=== PATIENT | female | born 2000 | race Caucasian/White ===

== ENCOUNTER 2024-10-05 10:12 | Inpatient (IN) | payer BC, OTHER ==
[2024-10-13] MEDS ORDERED: miSOPROStoL 25 MCG TAB PV SCH (00:15)
[2024-10-13] MEDS ORDERED: MAGNESIUM HYDROXIDE/AL HYDROX 30 ML CUP PO PRN (00:15)
[2024-10-13] MEDS ORDERED: LACTATED RINGER'S 1,000 ML IV PRN (00:15)
[2024-10-13] MEDS ORDERED: CALCIUM CARBONATE 500 MG CHEW PO PRN (00:15)
[2024-10-13] MEDS ORDERED: OXYTOCIN 10 UNITS/ML VIAL IM SCH (00:15)
[2024-10-13 01:13] LABS: AMPHETAMINES, URINE NEGATIVE (NEGATIVE); BARBITURATES, URINE NEGATIVE (NEGATIVE); BENZODIAZEPINE, URINE NEGATIVE (NEGATIVE); BUPRENORPHINE, URINE NEGATIVE (NEGATIVE); CANNABINOID, URINE NEGATIVE (NEGATIVE); COCAINE, URINE NEGATIVE (NEGATIVE); ECSTASY, URINE NEGATIVE (NEGATIVE); FENTANYL, URINE NEGATIVE (NEGATIVE); METHADONE, URINE NEGATIVE (NEGATIVE); OPIATES, URINE NEGATIVE (NEGATIVE); OXYCODONE, URINE NEGATIVE (NEGATIVE); PHENCYCLIDINE, URINE NEGATIVE (NEGATIVE)
[2024-10-13 01:36] LABS: HEMATOCRIT 37.9 % (35.0-50.0); HEMOGLOBIN 13.4 g/dL (12.0-18.0); MCH 30.3 (27-36); MCHC 35.4 g/dl (30-36); MCV 85.7 fl (81-99); RBC 4.42 M/ul (4.3-5.7); RDW 13.2 (10.5-15.0)
[2024-10-13 02:10] LABS: ABO AB; ANTIBODY SCREEN NEGATIVE; RH POSITIVE
[2024-10-13 03:16] VITALS: BP 125/86
[2024-10-13] MEDS ORDERED: OXYTOCIN/0.9 % SODIUM CHLORIDE 30 UNITS/500 ML BAG IV SCH (09:45)
[2024-10-13] MEDS ORDERED: MAGNESIUM SULFATE 500 ML IV SCH (10:15)
[2024-10-13] MEDS ORDERED: CALCIUM GLUCONATE 1,000 MG/10 ML VIAL IV PRN (10:15)
[2024-10-13] MEDS ORDERED: LACTATED RINGER'S 1,000 ML IV SCH (10:15)
[2024-10-13] MEDS ORDERED: LABETALOL HCL 100 MG/20 ML MDV IV PRN ×3 (10:15)
[2024-10-13 10:26] VITALS: BP 174/91
[2024-10-13 10:44] LABS: HEMATOCRIT 41.2 % (35.0-50.0); HEMOGLOBIN 14.4 g/dL (12.0-18.0); MCH 30.3 (27-36); MCHC 34.9 g/dl (30-36); MCV 86.8 fl (81-99); RBC 4.74 M/ul (4.3-5.7); RDW 13.2 (10.5-15.0)
[2024-10-13 11:09] LABS: ALBUMIN 2.8 g/dL (3.4-5.0); ALBUMIN/GLOBULIN RATIO 0.7 (1.1-2.4); ANION GAP 11.5 (7-21); BILIRUBIN, TOTAL 0.2 mg/dL (0.2-1.0); BUN/CREATININE RATIO 15.38 (6.0-28.6); CALCIUM 8.7 mg/dL (8.5-10.1); CREATININE, SERUM 0.78 mg/dL (0.55-1.02); POTASSIUM 3.5 mmol/L (3.5-5.1); PROTEIN, TOTAL 6.8 g/dL (6.4-8.2)
[2024-10-13] MEDS ORDERED: ePHEDrine sulfate 5 MG/ML SYRINGE IV PRN (11:30)
[2024-10-13] MEDS ORDERED: ROPIVACAINE 0.2% 200 ML BAG EPIDURAL SCH (11:30)
[2024-10-13] MEDS ORDERED: LACTATED RINGER'S 500 ML IV PRN (11:30)
[2024-10-13] MEDS ORDERED: LACTATED RINGER'S 2,000 ML IV ONE (11:30)
[2024-10-13 12:42] LABS: CREATININE, RANDOM URINE 62.33 mg/dL (NOT ESTABLISHED); PROTEIN/CREATININE RATIO 0.49 mg/mg (0.010-0.107)
[2024-10-13 16:29] LABS: IS CROSSMATCH COMPATIBLE
[2024-10-13 16:31] LABS: ABO AB; RH POSITIVE
--- NOTE | 2024-10-13 18:41 | PR ---
[facility] [address], [place] [address] Signed Progress Notes IP Datetime Report Generated by CPLele: 10/13/2024 18:41 PROGRESS NOTES: [id number] Impression: Normal Progression of Labor; Reassuring Heart Rate Procedures: Scalp Electrode Plan: Continue Present Management; Anticipate Vaginal Delivery Informed Consent Obtain: Vaginal Delivery VITAL SIGNS: [id number] Vital Signs: Reviewed; Within Normal Limits EXAM: [id number] Dilatation: 8.0 Effacement: 90 Station: -1 Contractions: Irregular; difficult to trace MEMBRANES: [id number] Amniotic Fluid Color: Clear Comments: Pt seen and examined. Doing well. BPs well controlled. Painfree w/ epidural. Making steady progress w/ reassuring FHT. Anticpate . Discussed indications for IUPC / pitocin if unchanged at next exam. All questions answered. FETUS A: [id number] FHR Baseline: 120 Variability: Moderate 6-25bpm Accelerations: 15X15 Decelerations: None FHR Category: Category I Presentation: Vertex Comments on Fetus A: No evidence of metabolic acidosis FETUS B: [id number] Signing Physician: Socrates Arias DO Copies: ~ *Electronically Signed* 10/13/24 184 SOCRATES ARIAS (DAI) DO PATIENT NAME: MICHELLE GARCIA PROGRESS NOTE DATE OF : 99 PHYSICIAN: SOCRATES ARIAS DO (JD) RPT #: [id number] REPORT IS CONFIDENTIAL AND NOT TO BE RELEASED WITHOUT AUTHORIZATION
[2024-10-13] MEDS ORDERED: ACETAMINOPHEN 500 MG TAB PO PRN (20:45)
--- NOTE | 2024-10-13 22:58 | PR ---
[facility] [address], [place] [address] Signed Progress Notes IP Datetime Report Generated by SHAISTA: 10/13/2024 22:58 PROGRESS NOTES: [id number] Impression: Normal Progression of Labor; Reassuring Heart Rate Procedures: Intrauterine Pressure Catheter; Sterile Vag Exam Plan: Augmentation; Anticipate Vaginal Delivery Informed Consent Obtain: Vaginal Delivery; Risks, Benefits and Alternatives Discussed Other Informed Consents: Pt declined scalp electrode at this time VITAL SIGNS: [id number] Vital Signs: Reviewed; Within Normal Limits EXAM: [id number] Dilatation: 9.0 Effacement: 90 Station: -1 Contractions: Difficult to monitor MEMBRANES: [id number] Amniotic Fluid Color: Clear Comments: Pt seen and examined. Doing well. Recommended IUPC and likely pitocin augmentation if CTXs inadequate. Pt ok with IUPC and pitocin if needed; declines FSE. IUPC placed w/out diffculty. Pitocin if inadequate and will titrated until CTXs adequate. Anticipate . Discussed possible amnioinfusion should pt have recurrent significant variable decelerations. FETUS A: [id number] FHR Baseline: 120 Variability: Moderate 6-25bpm Accelerations: 15X15 Decelerations: Variable FHR Category: Category II Presentation: Vertex Comments on Fetus A: No evidence of metabolic acidosis FETUS B: [id number] Signing Physician: Socrates Arias DO Copies: ~ *Electronically Signed* 10/13/24 9385 SOCRATES ARIAS (DAI) DO PATIENT NAME: MICHELLE GARCIA PROGRESS NOTE DATE OF : 99 PHYSICIAN: SOCRATES ARIAS DO (JD) RPT #: [id number] REPORT IS CONFIDENTIAL AND NOT TO BE RELEASED WITHOUT AUTHORIZATION
[2024-10-13] MEDS ORDERED: OXYTOCIN/0.9 % SODIUM CHLORIDE 500 ML IV SCH (23:15)
[2024-10-14] MEDS ORDERED: CALCIUM CARBONATE 500 MG CHEW PO PRN (01:15)
[2024-10-14] MEDS ORDERED: HYDROCORTISONE ACETATE 25 MG SUPP PR PRN (01:15)
[2024-10-14] MEDS ORDERED: LACTATED RINGER'S 1,000 ML IV SCH (01:15)
[2024-10-14] MEDS ORDERED: OXYTOCIN/0.9 % SODIUM CHLORIDE 500 ML IV SCH (01:15)
[2024-10-14] MEDS ORDERED: MAGNESIUM HYDROXIDE 30 ML UDC PO PRN (01:15)
[2024-10-14] MEDS ORDERED: MAGNESIUM SULFATE 500 ML IV SCH (01:15)
[2024-10-14] MEDS ORDERED: BENZOCAINE 60 ML AEROSOL TOP PRN (01:15)
[2024-10-14] MEDS ORDERED: IBUPROFEN 600 MG TAB PO PRN (01:15)
[2024-10-14] MEDS ORDERED: OXYCODONE/APAP 5/325 TAB PO PRN (01:15)
[2024-10-14] MEDS ORDERED: MAGNESIUM HYDROXIDE/AL HYDROX 30 ML CUP PO PRN (01:15)
[2024-10-14] MEDS ORDERED: WITCH HAZEL/GLYCERIN 1 EA PAD TOP PRN (01:15)
[2024-10-14] MEDS ORDERED: CALCIUM GLUCONATE 1,000 MG/10 ML VIAL IV PRN (01:15)
[2024-10-14] MEDS ORDERED: ACETAMINOPHEN 325 MG TAB PO PRN (01:15)
[2024-10-14] MEDS ORDERED: HYDROCODONE/ACETA 5/325 TAB PO PRN (01:15)
[2024-10-14 07:11] LABS: HEMOGLOBIN 12.8 g/dL (12.0-18.0); MCH 29.9 (27-36); MCHC 34.7 g/dl (30-36); MCV 86.2 fl (81-99); RBC 4.29 M/ul (4.3-5.7); RDW 13.3 (10.5-15.0)
[2024-10-14] MEDS ORDERED: FERROUS SULFATE 325 MG TAB PO SCH (08:00)
[2024-10-14] MEDS ORDERED: SENNOSIDES/DOCUSATE 1 EA TAB PO SCH (09:00)
--- NOTE | 2024-10-14 12:45 | PR ---
[facility] [address] [facility] [place] [facility] [place], [place] [address] Signed PP Progress Notes Datetime Report Generated by CPN: 10/14/2024 12:45 SUBJECTIVE: [id number] Pain: Within Normal Limits Nausea/Vomiting: Denies Flatus: Yes Bowel Movement: No Vital Signs: [id number] Vital Signs: Reviewed; Within Normal Limits EXAM: Met Cardiovascular: Normal Respiratory: Normal Abdomen/Uterus: Normal Lochia: Normal Vulva/Perineum: Not Done Breasts: Not Done CVA Tenderness: Normal Extremities: Normal Incision: Not Applicable Progress: Normal Exam Comments: Fundus firm U-2 nontender. IMPRESSION/PLAN/PROCEDURES: [id number] Impression: Normal Progression Plan: Continue Present Management Progress Notes: Pt seen and examined. Doing well. BPs well controlled and good diuresis. No ABRAHAM, RUQ pain, or visual changes. Continues on Mag. Pain and lochia minimal. well. No concerns. Anticipate d/c mag at 24 hr . All questions answered. Mag 5.2. Plts 133 Signing Physician: Socrates Arias DO Copies: ~ *Electronically Signed* 10/14/24 0294 SOCRATES ARIAS (DAI) DO PATIENT NAME: MICHELLE GARCIA PROGRESS NOTE DATE OF : 99 PHYSICIAN: SOCRATES ARIAS (JD) DO RPT #: [id number] REPORT IS CONFIDENTIAL AND NOT TO BE RELEASED WITHOUT AUTHORIZATION
--- NOTE | 2024-10-15 07:34 | PR ---
[facility] [address] [facility] [place], [place] [address] Signed PP Progress Notes Datetime Report Generated by CPN: 10/15/2024 07:34 SUBJECTIVE: [id number] Pain: Within Normal Limits Nausea/Vomiting: Denies Flatus: Yes Bowel Movement: No Vital Signs: [id number] Vital Signs: Reviewed; Within Normal Limits Notable Details: Good diuresis overnight EXAM: Met Cardiovascular: Normal Respiratory: Normal Abdomen/Uterus: Normal Lochia: Normal Vulva/Perineum: Not Done Breasts: Not Done CVA Tenderness: Normal Extremities: Normal Incision: Not Applicable Progress: Normal Exam Comments: Fundus firm U-2 nontender. Pt up and active IMPRESSION/PLAN/PROCEDURES: [id number] Impression: Normal Progression; Induced Hypertension Plan: Continue Present Management Progress Notes: Pt seen and examined. Doing well. Ambulating, voiding, and tolerating full diet. Pain and lochia minimal. . No ABRAHAM, RUQ pain or visual changes. Mag d/c's. No questions or concerns. Pt would like d/c home this evening but likely will be d/c'd home tomorrow. Signing Physician: Socrates Arias DO Copies: ~ *Electronically Signed* 10/15/24 0734 SOCRATES ARIAS (DAI) DO PATIENT NAME: MICHELLE GARCIA PROGRESS NOTE DATE OF : 99 PHYSICIAN: SOCRATES ARIAS (JD) DO RPT #: [id number] REPORT IS CONFIDENTIAL AND NOT TO BE RELEASED WITHOUT AUTHORIZATION
== END 2024-10-15 19:26 | disposition home or self-care (01) | DRG 807 ==
LOC: FBCO → EDSTATUS 10:12 → FBCO 10:48 → FBC 10-13 00:04
PROVIDERS: ADMIT Obstetrics & Gynecology; ATTEND Obstetrics & Gynecology
PROC: 4A1HXCZ Monitoring of Products of Conception, Cardiac Rate, External Approach (ICD-10-PCS; principal; 2024-10-14)
PROC: 10E0XZZ Delivery of Products of Conception, External Approach (ICD-10-PCS; 2024-10-14)
PROC: 3E0R3GC Introduction of Other Therapeutic Substance into Spinal Canal, Percutaneous Approach (ICD-10-PCS; 2024-10-14)
PROC: 3E033VJ Introduction of Other Hormone into Peripheral Vein, Percutaneous Approach (ICD-10-PCS; 2024-10-14)
DX: O48.0 Post-term pregnancy (principal); Z37.0 Single live birth; O14.14 Severe pre-eclampsia complicating childbirth; O76 Abnormality in fetal heart rate and rhythm complicating labor and delivery; Z3A.41 41 weeks gestation of pregnancy; O13.4 Gestational [pregnancy-induced] hypertension without significant proteinuria, complicating childbirth; O42.92 Full-term premature rupture of membranes, unspecified as to length of time between rupture and onset of labor
CPT/HCPCS: 01960; 36415; 80053; 80307; 82565; 82570; 83615; 83735; 84156; 84550; 85027; 86850; 86900; 86901; 86922; A9270; J3475; J7121

== ENCOUNTER 2024-10-15 21:50 | Emergency (ER) | payer BC, OTHER ==
[~2024-10-15] VITALS: Ht 182.9 cm; Wt 107.3 kg
[2024-10-15 22:43] LABS: BASOPHILS 0.7 % (0-2); EOSINOPHILS 1.3 % (0-6); HEMATOCRIT 36.2 % (35.0-50.0); HEMOGLOBIN 12.5 g/dL (12.0-18.0); LYMPHOCYTES 22.9 % (24-44); MCHC 34.6 g/dl (30-36); MCV 86.5 fl (81-99); MONOCYTES 4.7 % (0-12); NEUTROPHILS 70.4 % (39-80); PLATELET COUNT 193 K/uL (140-440); RBC 4.18 M/ul (4.3-5.7); RDW 13.9 (10.5-15.0)
[2024-10-15 23:02] LABS: ALBUMIN 2.6 g/dL (3.4-5.0); ALBUMIN/GLOBULIN RATIO 0.65 (1.1-2.4); ANION GAP 8.8 (7-21); BILIRUBIN, TOTAL 0.1 mg/dL (0.2-1.0); BUN/CREATININE RATIO 11.11 (6.0-28.6); CALCIUM 8.9 mg/dL (8.5-10.1); CREATININE, SERUM 0.99 mg/dL (0.55-1.02); POTASSIUM 3.8 mmol/L (3.5-5.1); PROTEIN, TOTAL 6.6 g/dL (6.4-8.2)
[2024-10-15 23:51] LABS: BILIRUBIN, URINE NEGATIVE (negative); BLOOD/HGB, URINE LARGE (Negative); KETONE, URINE NEGATIVE (Negative); LEUK ESTERASE, URINE SMALL (negative); NITRITE, URINE NEGATIVE (negative); PH, URINE 6.5 (5-7)
[2024-10-15 23:56] LABS: BACTERIA, URINE RARE /hpf (negative); CASTS, URINE NONE SEEN \\lpf; COLLECTION TYPE, URINE CLEAN CATCH; CRYSTALS, URINE NONE SEEN (0-1+); EPITHELIAL CELLS, URINE SQUAMOUS 1+ /lpf (0-1+); RED BLOOD CELLS, URINE 21-40 /hpf (0-5); REFLEX CULTURE, URINE No (No)
[2024-10-16 01:52] VITALS: BP 122/77
== END 2024-10-16 01:53 | disposition home or self-care (01) ==
LOC: ED 21:50
PROVIDERS: Emergency Medicine
DX: O99.893 Other specified diseases and conditions complicating puerperium (principal); R10.11 Right upper quadrant pain
CPT/HCPCS: 36415; 76705; 80053; 81001; 83690; 84703; 85025; 99284-25